=== PATIENT | female | born 1975 | race Caucasian/White ===

== ENCOUNTER 2018-04-13 23:27 | Emergency (ER) | payer OTHER ==
[2018-04-14] MEDS ORDERED: Morphine 4 MG/ML VIAL ONE (00:05)
[2018-04-14] MEDS ORDERED: Ketorolac Tromethamine 30 MG/ML VIAL ONE (00:06)
[2018-04-14 00:09] LABS: #Basophils 0.2 thou/uL (0.0-0.2); #Eosinphils 0.5 thou/uL (0.0-0.7); #Lymphocytes 3.4 thou/uL (1.20-3.40); #Monocytes 0.9 thou/uL (0.11-0.59); %Basophils 1.5 % (0.0-1.0); %Eosinophils 4.5 % (0.0-10.0); %Lymphocytes 28.4 % (21.0-51.0); %Monocytes 7.5 % (0.0-10.0); %Neutrophils 58.2 % (42.0-75.0); Hemoglobin 11.7 g/dL (12.0-16.0); Mean Corpuscular HGB CONC 33.1 g/dL (32.0-36.0); Mean Corpuscular Hemoglobin 30.1 pg (27.0-31.0); Mean Corpuscular Volume 91.1 fL (78.0-98.0); Mean Platelet Volume 6.2 fL (7.4-10.4); Platelet Count 261 thou/uL (130-400); RBC Distribution Width 11.4 % (11.5-14.5); Red Blood Cell (RBC) Count 3.87 mill/uL (4.20-5.40); White Blood Cell (WBC) Count 12.1 thou/uL (4.8-10.8)
[2018-04-14 00:17] LABS: BHCG - Serum Negative (NEGATIVE); Pregs Control Background? CLEAR/WHITE (CLR/WHITE); Pregs Control Bar Appear? YES (CONTROL BAR)
[2018-04-14 00:23] LABS: ALT (SGPT) 60 U/L (8-55); AST (SGOT) 43 U/L (5-34); Albumin 3.9 g/dL (3.5-5.0); Alkaline Phosphatase 58 U/L (40-150); Anion Gap 15 mmol/L (10-20); BUN (Urea Nitrogen) 12 mg/dL (7.0-18.7); Bilirubin, Total 0.6 mg/dL (0.2-1.2); Calc. Creatinine Clearance 0 mL/min (70-130); Carbon Dioxide 19 mmol/L (22-29); Chloride 107 mmol/L (98-107); Estimated GFR-MDRD 57; Globulin 3.4 g/dL (2.4-3.5); Glucose 96 mg/dL (70-105); Potassium 3.7 mmol/L (3.5-5.1); Protein, Total 7.3 g/dL (6.0-8.3); Sodium 137 mmol/L (136-145)
[2018-04-14 00:30] LABS: Bilirubin Negative (Negative); Blood, Urine Small (Negative); Clarity Clear (Clear); Glucose, Urine (Dipstick) Negative (Negative); Leukocyte Trace (Negative); Nitrite Negative (Negative); Protein, Urine (Dipstick) Negative (Neg-Trace); RBC/HPF 0-3 HPF (0-3); Specific Gravity, Urine 1.015 (1.005-1.030); Squamous Epithelial 0-3 HPF (0-3); Urobilinogen 0.2 mg/dL (0.2-1.0); pH, Urine 6.5 (5.0-9.0)
[2018-04-14 00:34] LABS: Bacteria/HPF None Seen HPF (None Seen); Hyaline Casts/LPF NONE SEEN LPF (0-3 Hyaline)
--- NOTE | 2018-04-14 09:50 | CT ---
PRELIMINARY REPORT/[facility]/EMERGENTY AFTER-HOURS PROCEDURE CT Abdomen and Pelvis Without Contrast EXAM DATE/TIME: 04/14/2018 12:01 AM CLINICAL HISTORY: 42 years old, female; Abdominal pain; left flank pain described as burning TECHNIQUE: Axial computed tomography images of the abdomen and pelvis without contrast. Coronal reformatted images were created and reviewed. COMPARISON: No relevant prior studies available. FINDINGS: Lower thorax: No acute findings. ABDOMEN: Liver: Normal. No mass. Gallbladder and bile ducts: Normal. No calcified stones. No ductal dilation. Pancreas: Normal. No ductal dilation. Spleen: Normal. No splenomegaly. Adrenals: Normal. No mass. Kidneys and ureters: Left hydronephrosis with 3 mm calcified stone in the distal left UVJ region. Bilateral calcified renal stones. Stomach and bowel: Normal. No obstruction. No mucosal thickening. Appendix: Normal appendix. PELVIS: Bladder: Unremarkable as visualized. Reproductive: Normal unenhanced uterus and ovaries. ABDOMEN and PELVIS: Intraperitoneal space: Normal. No free air. No significant fluid collection. Bones/joints: No acute fracture. No dislocation. Soft tissues: Small fat-containing umbilical hernia. Vasculature: Normal. No abdominal aortic aneurysm. Lymph nodes: Normal. No enlarged lymph nodes. IMPRESSION: 1. Left hydronephrosis with 3 mm calcified stone in the distal left UVJ region. 2. Bilateral calcified renal stones. Thank you for allowing us to participate in the care of your patient. Dictated and Authenticated by: Rafa Sharpe MD 04/14/2018 1:05 AM Central Time ([place] & [place]) FINAL REPORT CT ABDOMEN AND PELVIS WITHOUT CONTRASTS: Date: 04/14/18 FINDINGS/IMPRESSION: I agree with the preliminary report given by Mario. POS: VALERIANO
== END 2018-04-14 01:28 | disposition home or self-care (01) ==
LOC: SCSER 23:27
DX: N13.2 Hydronephrosis with renal and ureteral calculous obstruction (principal); E78.1 Pure hyperglyceridemia; E03.9 Hypothyroidism, unspecified; F41.9 Anxiety disorder, unspecified; F31.9 Bipolar disorder, unspecified; Z79.899 Other long term (current) drug therapy
CPT/HCPCS: 74176; 80053; 81003; 81015; 84703; 85025; 96361; 96374; 96375; J1885; J2270

== ENCOUNTER 2018-06-21 15:36 | Outpatient (CLI) | payer OTHER ==
--- NOTE | 2018-06-21 17:40 | MRI ---
MRI LUMBAR SPINE NONCONTRAST: 06/21/18 HISTORY: Low back pain with left leg radiculopathy. FINDINGS: The conus medullaris has a normal appearance. Vertebral body heights and alignment are maintained. Th ere is increased T2 signal and decreased T1 signal within the left L4 and L5 pedicles. T12-L1: Minimal disc bulge. Osteophytosis. Central canal and neural foramina remain patent. L1-2: Mild disc space narrowing. Posterior disc bulge and circumferential degenerative changes. Mild stenosis of the central canal. L2-3: Osseous hypertrophy of each facet with small amount of joint fluid. Central canal and neural fo ramina are patent. L3-4: Desiccation of the disc and minimal bulge. Osteophytosis of the facets. Central canal remains p atent. Far left lateral disc bulge and osteophytosis results in mild stenosis of the left neural fora men. L4-5: Desiccation of the disc. Minimal disc bulge. Osteophytosis of each facet. Mild bilateral forami nal stenoses. L5-S1: Osteophytosis. Central canal and neural foramina are patent. IMPRESSION: Bone marrow edema suggesting stress reaction within the left L4 and L5 pedicles. Mild multilevel degenerative changes throughout the lumbar spine as detailed above. No focal disc her niation or nerve root compression. POS: MAGGIE
== END 2018-06-21 15:37 | disposition home or self-care (01) ==
LOC: SCSMRI 15:36
PROVIDERS: ATTEND Family Medicine
DX: M47.26 Other spondylosis with radiculopathy, lumbar region (principal); M99.03 Segmental and somatic dysfunction of lumbar region
CPT/HCPCS: 72148

== ENCOUNTER 2018-12-02 08:26 | Outpatient (CLI) | payer OTHER ==
--- NOTE | 2018-12-02 09:31 | MMO ---
Left Breast MAMMO Unilat Diag DDI LT+DADA. CLINICAL HISTORY: Patient is 43 years old and is seen for additional evaluation requested from prior study. The patient has no family history of breast cancer. The patient has no personal history of cancer. VIEWS: The views performed were: left craniocaudal spot compression with tomosynthesis; left mediolateral oblique spot compression with tomosynthesis; and left mediolateral with tomosynthesis. FILMS COMPARED: The present examination has been compared to prior imaging studies performed at [facility] on 11/21/2018, and at [facility] on 12/02/2018. MAMMOGRAM FINDINGS: There are scattered fibroglandular densities. There are two masses seen in the left breast. These may represent intramammary lymph nodes. IMPRESSION: MASSES IN THE LEFT BREAST ARE PROBABLY BENIGN. FOLLOW-UP IN 6 MONTHS IS RECOMMENDED. THE RESULTS OF THIS EXAM WERE SENT TO THE PATIENT. ACR BI-RADS Category 3 - Probably benign finding - short interval follow-up suggested. [facility] will notify the patient of the need for additional imaging services. MAMMOGRAPHY NOTE: 1. A negative mammogram report should not delay a biopsy if a dominant of clinically suspicious mass is present. 2. Approximately 10% to 15% of breast cancers are not detected by mammography. 3. Adenosis and dense breasts may obscure an underlying neoplasm. Reported by: DO BRENNER MD Electonically Signed: [id number]
--- NOTE | 2018-12-02 10:24 | ULT ---
LEFT BREAST ULTRASOUND: HISTORY: A 43-year-old female with asymmetry seen in the 2 o'clock and 9 o'clock positions of the left breast on mammography. COMPARISON: Mammograms from 12/02/2018 and 11/21/2018. TECHNIQUE: Multiplanar vital-scale and color Doppler images were obtained in a left breast ultrasound. FINDINGS: At the 2 o'clock position of the left breast, approximately 2 cm from the nipple, there is a well cir cumscribed, hypoechoic lesion with a hyperechoic center, which may represent a small intramammary lym ph node. This measures 5 mm in greatest dimension. At the 9 o'clock position of the left breast, ap proximately 6 cm from the nipple, there is a difficult to visualized hypoechoic region in the deep as pect of the breast, measuring 4 mm in greatest dimension. This may also represent an intramammary ly mph node. IMPRESSION: BI-RADS category 3-Probably benign finding. A six month left breast mammogram and ultrasound are rec ommended to ensure stability. POS: VALERIANO
== END 2018-12-02 08:27 | disposition home or self-care (01) ==
LOC: BICMAMMO 08:26
PROVIDERS: ATTEND Obstetrics & Gynecology
DX: N63.20 Unspecified lump in the left breast, unspecified quadrant (principal)
CPT/HCPCS: G0279

== ENCOUNTER 2023-01-05 08:29 | Outpatient (CLI) | payer BC | END 2023-01-05 08:30 | disposition home or self-care (01) | LOC: ULT 08:29 | PROVIDERS: ATTEND Family Medicine | DX: Z87.440 Personal history of urinary (tract) infections (principal) | CPT/HCPCS: 76700 ==